=== PATIENT | male | born 1950 | race Caucasian/White ===

== ENCOUNTER 2024-11-20 06:14 | Outpatient (CLI) | payer MEDICARE, BC, SELFPAY ==
--- NOTE | 2024-11-20 06:30 | MR_ITS ---
WS: [id number] MRI LUMBAR SPINE NONCONTRAST TECHNIQUE: Sagittal T1, T2 and STIR imaging. Axial T1 and T2 imaging. CLINICAL INFORMATION: INTRACTABLE PAIN LUMBAR SPINE COMPARISON: None. FINDINGS: Mild lumbar curve. No acute compression. 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 Prominent epidural fat also contributes to central canal stenosis. L1-L2: Mild disc bulging with severe narrowing of the thecal sac and crowding of the cauda equina nerve rootlets. Moderate facet arthropathy with ligamentum flavum hypertrophy. Prominent epidural fat. Moderate bilateral foraminal narrowing. L2-L3: Moderate to severe narrowing of the thecal sac with crowding of the cauda equina nerve rootlets. Mild disc bulging with facet arthropathy and ligamentum flavum hypertrophy. Prominent epidural fat. Mild RIGHT greater than LEFT foraminal narrowing. Narrowing of the RIGHT subarticular recess. L3-L4: Moderate to severe narrowing of the thecal sac. Mild disc bulging with facet arthropathy and ligamentum flavum hypertrophy. Prominent epidural fat. Impingement on the RIGHT greater than LEFT subarticular recess. Mild to moderate bilateral foraminal narrowing. L4-L5: Severe narrowing of the thecal sac. Impingement subarticular recess. Mild disc bulging with facet arthropathy and ligamentum flavum hypertrophy. Impingement on the exiting RIGHT L4 nerve root. Severe RIGHT foraminal narrowing. L5-S1: Mild disc bulging with slight effacement of the ventral thecal sac. Moderate facet arthropathy with ligamentum flavum hypertrophy. Mild central canal stenosis. Mild RIGHT foraminal narrowing. Visualized pelvic bony structures: Normal. Paravertebral soft tissues: Normal. Small LEFT renal cyst. MR/MR lumbar spine wo con* [id number] IMPRESSION: 1. Multilevel moderate to severe central canal stenosis/narrowing of the theca l sac due to a combination mild disc bulging, congenital spinal canal narrowing and facet arthropathy with ligamentum flavum hypertrophy. Prominent epidural f at contributes to stenosis. 2. Severe narrowing of the thecal sac L1-2, moderate to severe L2-3, moderate L3-4, and severe L4-5. 3. Severe RIGHT L4-5 foraminal narrowing impinges the exiting RIGHT L4 nerve r oot.
== END 2024-11-20 06:15 | disposition home or self-care (01) ==
PROVIDERS: Visit Provider Clinical Nurse Specialist Family Health
DX: M48.062 Spinal stenosis, lumbar region with neurogenic claudication (principal); M51.362 Other intervertebral disc degeneration, lumbar region with discogenic back pain and lower extremity pain
CPT/HCPCS: 72148